=== PATIENT | female | born 1995 | race Caucasian/White ===

== ENCOUNTER 2018-02-17 04:07 | Emergency (ER) | payer MEDICAID, OTHER ==
[2018-02-17 04:15] VITALS: BP 141/77; BMI 18.8
--- NOTE | 2018-02-17 04:25 | DR.GENAD ---
HPI - PCP Primary Care Physician: nfd - HPI Comment HPI Comment: COUGHING AND IMBALANCE FOR 3 DAYS. GETTING WORSE. - Complaint/Symptoms Chief Complaint Doctors Comments: PATIENT, PASS OUT AT HOME AND HAVING SOB AND HEADACHE. SOME DIZZINESS WELL OUT OF HER DEPRESSION MEDICATION BUT DENIES HALLUCINATIONS, SUICIDAL OR HOMICIDAL IDEATION. NO FEVER OR DYSURIA. EPIGASTRIC PAIN AND REFLUXTODAY. Chief Complaint:: pt states" i been tingling all over for 2 days. i think i passed out yesterday i woke up laying on the couch" - Nurses notes reviewed Nurses Notes Review: Yes - Source History Provided: Patient - Mode of Arrival Mode of Arrival: EMS - Timing Onset of Chief Complaint: 02/16/18 Came on: Suddenly - Duration Duration: Constant Duration: Days - Severity Severity: Moderate PMH - PMH Past Medical History: Yes Past Medical History: Anxiety, Depression Past Surgical History: Yes Surgical History: - Family History History of Family Medical Conditions: Yes Family Medical History: Diabetes Mellitus - Social History Type of Tobacco Use: Cigarettes Does any household member use tobacco: Yes Alcohol Use: None Do you use any recreational Drugs:: No Lives With: Family Lives Where: Home - infectious screening In the last 2 months have you had wt loss of >10#?: NO Have you had fever, night sweats or hemotysis?: No Have you traveled outside the country in the last 6 months?: No Isolation: Standard ROS - Review of Systems Constitutional: Weakness, Fatigue Eyes: No Symptoms Reported. negative: Eye Pain, Blurred Vision, Discharge, Photophobia, Diplopia ENTM: Nose Congestion. negative: Ear Pain, Nose Discharge, Throat Pain Respiratoy: Productive Cough, Short of Breath. negative: Wheezing, Hemoptysis Cardiovascular: No Symptoms Reported Gastrointestinal/Abdominal: Nausea Genitourinary: No Symptoms Reported. negative: Dysuria, Frequency, Hematuria Neurological: No Symptoms Reported, Headache, Weakness, Dizziness Musculoskeletal: Muscle Pain Integumentary: No Symptoms Reported Hematologic/Lymphatic: No Symptoms Reported Endocrine: No Symptoms Reported All Other Systems: Reviewed and Negative PE - Vital Signs Vitals: Temperature 98 F Pulse Rate 86 Respiratory Rate 18 Blood Pressure [Left Arm] 111/53 Blood Pressure [Right Arm] 125/60 Blood Pressure 141/77 O2 Sat by Pulse Oximetry 100 - General Limitations: No Limitations General Appearance: Alert - Head Head Exam: Normal Inspection - Eyes Eye exam: Normal Appearance - ENT ENT Exam: Normal External Ear Exam External Ear Exam: Normal External Inspection TM/Canal Exam: Bilateral Normal Nose Exam: Normal Nose Exam Mouth Exam: Normal Inspection Throat Exam: Normal Inspection - Neck Neck Exam: Trachea Midline - Chest Chest Inspection: Symmetric Chest Wall Rise - Respiratory Respiratory Exam: Normal Lung Sounds Bilat Respiratory Exam: Bilateral Clear to Auscultation - Cardiovascular Cardiovascular Exam: Regular Rate, Normal Rhythm, Normal Heart Sounds - Abdominal Exam Abdominal Exam: Normal Bowel Sounds, Soft. negative: Tenderness - Extremities Extremities Exam: Normal Inspection - Back Back Exam: Normal Inspection - Neurologic Neurological Exam: Alert, Oriented X3 - Psychiatric Psychiatric Exam: Normal Affect, Normal Mood - Skin Skin Exam: Normal Color MDM - Differential Diagnosis Differential Diagnosis: GENERALIZE WEAKNESS, DIZZINESS, ATAXIA, DEHYDRATION, PNEUMONIA,SYNCOPAL EPI Course - Treatment Treatment: SEE ORDERS. - Education/Counseling Education/Counseling: Patient, Education Educated On: Diagnosis, Needs for Follow Up ROR - Labs Reviewed Laboratory Results Reviewed?: Yes Result Diagrams: 02/17/18 05:18 02/17/18 05:18 Laboratory: WBC 14.4 X10^3/uL (3.6-10.0) H 02/17/18 05:18 RBC 4.50 X10^6/uL (3.5-5.4) 02/17/18 05:18 Hgb 13.5 g/dL (12.0-16.0) 02/17/18 05:18 Hct 39.2 % (36.0-47.0) 02/17/18 05:18 MCV 86.9 fL (80.0-100.0) 02/17/18 05:18 MCH 29.9 pg (27.0-34.0) 02/17/18 05:18 MCHC 34.4 g/dL (33.0-35.0) 02/17/18 05:18 RDW 13.5 % (11.6-16.5) 02/17/18 05:18 Plt Count 300 X10^3/uL (150.0-450.0) 02/17/18 05:18 MPV 7.8 fL (7.4-11.0) 02/17/18 05:18 Neut % (Auto) 70.1 % (42.0-75.0) 02/17/18 05:18 Lymph % (Auto) 20.5 % (21.0-51.0) L 02/17/18 05:18 [place] % (Auto) 5.9 % (0.0-13.0) 02/17/18 05:18 Eos % (Auto) 3.0 % (0.9-2.9) H 02/17/18 05:18 Baso % (Auto) 0.5 % (0.2-1.0) 02/17/18 05:18 Neut # (Auto) 10.1 x10^3/uL (2.2-4.8) H 02/17/18 05:18 Lymph # (Auto) 3.0 X10^3/uL (1.3-2.9) H 02/17/18 05:18 [place] # (Auto) 0.8 x10^3/uL (0.3-0.8) 02/17/18 05:18 Eos # (Auto) 0.4 x10^3/uL (0.0-0.2) H 02/17/18 05:18 Baso # (Auto) 0.1 X10^3/uL (0.0-0.1) 02/17/18 05:18 Absolute Nucleated RBC 0.0 /100WBC 02/17/18 05:18 Sodium 137 mmol/L (136-145) 02/17/18 05:18 Corrected Sodium TNP 02/17/18 05:18 Potassium 3.7 mmol/L (3.5-5.1) 02/17/18 05:18 Chloride 99 mmol/L (98-107) 02/17/18 05:18 Carbon Dioxide 25.8 mmol/L (21-32) 02/17/18 05:18 BUN 7 mg/dL (7-18) 02/17/18 05:18 Creatinine 0.76 mg/dL (0.55-1.02) 02/17/18 05:18 Est GFR (MDRD) Af Amer > 60 (>60) 02/17/18 05:18 Est GFR (MDRD) Non-Af > 60 (>60) 02/17/18 05:18 Glucose 101 mg/dL (65-99) H 02/17/18 05:18 Calcium 9.2 mg/dL (8.5-10.1) 02/17/18 05:18 Corrected Calcium TNP 02/17/18 05:18 Total Bilirubin 0.60 mg/dL (0.2-1.0) 02/17/18 05:18 AST 9 Units/L (15-37) L 02/17/18 05:18 ALT 19 Units/L (12-78) 02/17/18 05:18 Alkaline Phosphatase 106 Units/L (46-116) 02/17/18 05:18 Total Protein 8.3 g/dL (6.4-8.2) H 02/17/18 05:18 Albumin 4.4 g/dL (3.4-5.0) 02/17/18 05:18 Globulin 3.9 g/dL (2.5-4.5) 02/17/18 05:18 Albumin/Globulin Ratio 1.1 Ratio (1.1-2.1) 02/17/18 05:18 Specimen Type Clean catch urine 02/17/18 06:47 Urine Color Straw (YELLOW) 02/17/18 06:47 Urine Appearance Clear (CLEAR) 02/17/18 06:47 Urine pH 7.0 (5.0 - 8.0) 02/17/18 06:47 Ur Specific [place] 1.005 (1.000-1.030) 02/17/18 06:47 Urine Protein Negative (NEGATIVE) 02/17/18 06:47 Urine Glucose (UA) Negative (NEGATIVE) 02/17/18 06:47 Urine Ketones Negative (NEGATIVE) 02/17/18 06:47 Urine Occult Blood Negative (NEGATIVE) 02/17/18 06:47 Urine Nitrite Negative (NEGATIVE) 02/17/18 06:47 Urine Bilirubin Negative (NEGATIVE) 02/17/18 06:47 Urine Urobilinogen Normal (NORMAL) 02/17/18 06:47 Ur Leukocyte Esterase Negative (NEGATIVE) 02/17/18 06:47 Urine Opiates Screen Negative (NEG=<300) 02/17/18 06:47 Urine Methadone Screen Negative (NEG=<300) 02/17/18 06:47 Ur Barbiturates Screen Negative (NEG=<200) 02/17/18 06:47 Ur Phencyclidine Scrn Negative (NEG=<25) 02/17/18 06:47 Ur Amphetamines Screen Negative (NEG=<1000) 02/17/18 06:47 U Benzodiazepines Scrn Negative (NEG=<200) 02/17/18 06:47 Urine Cocaine Screen Negative (NEG=<300) 02/17/18 06:47 U Marijuana (THC) Screen Negative (NEG=<50) 02/17/18 06:47 - XRAY XRAY Interpreted by: Radiologist XRAY Findings: REPORT DISCUSS WITH PATIENT. - Diagnosis Discharge Problem: Generalized weakness, Dehydration, Dyspepsia Syncope Qualifiers: Syncope type: unspecified Qualified Code(s): R55 - Syncope and collapse - Discharge Plan Disposition: 01 HOME, SELF-CARE Condition: Stable Prescriptions: Hydroxyzine Pamoate [Vistaril] 50 mg PO TID PRN #20 cap PRN Reason: Ranitidine HCl [ZANTAC TAB 150 MG *] 150 mg PO BID #60 tab - Follow ups/Referrals Follow ups/Referrals: NFD,None [Primary Care Provider] - 2 days - Instructions Instructions: Weakness, [id number], Dehydration, Adult, [id number], Syncope , [id number] Additional Instructions: RETURN TO ED IF WORSE. FOLLOW UP WITH [facility] TODAY FOR MENTAL HEALTH FOLLOW UP..
[2018-02-17] MEDS ORDERED: NS 1000 ML 1,000 ML IV ONE (04:48)
[2018-02-17] MEDS ORDERED: PEPCID 20 MG IV PREMIX* 20 MG/50 ML BAG IV ONE ×2 (04:49→05:04)
[2018-02-17] MEDS ORDERED: TORADOL 30 MG VIAL IVP ONE (04:49)
[2018-02-17] MEDS ORDERED: NS 1000 ML 1,000 ML ONE (05:04)
[2018-02-17] MEDS ORDERED: TORADOL 30 MG VIAL ONE (05:04)
--- NOTE | 2018-02-17 05:38 | RAD ---
Chest AP portable Indication: Near syncope Findings: There is no pneumothorax or effusion. There is no consolidation. Heart size is normal. Impression: No acute chest process. Reported By:
[2018-02-17 05:41] LABS: ALANINE AMINOTRANSFERASE 19 Units/L (12-78); ALBUMIN 4.4 g/dL (3.4-5.0); ALKALINE PHOSPHATASE 106 Units/L (46-116); ASPARTATE AMINO TRANSFERASE 9 Units/L (15-37); BLOOD UREA NITROGEN 7 mg/dL (7-18); CALCIUM 9.2 mg/dL (8.5-10.1); CARBON DIOXIDE 25.8 mmol/L (21-32); CHLORIDE 99 mmol/L (98-107); CREATININE 0.76 mg/dL (0.55-1.02); SODIUM 137 mmol/L (136-145); TOTAL PROTEIN 8.3 g/dL (6.4-8.2); eGFR BLACK RACES > 60 (>60); eGFR NON BLACK RACES > 60 (>60)
--- NOTE | 2018-02-17 05:42 | CT ---
HISTORY: Near syncope Study: CT brain without contrast Comparison: 08/07/2017. Technique: Multiple axial images of the brain were obtained from the skull base to the vertex without administra tion of IV contrast. Coronal and sagittal images are also reviewed. Dose reduction techniques utilize d automatic exposure control. Findings: No acute intraparenchymal hemorrhage or mass can be identified. No extra-axial fluid collections are seen. No alteration in the attenuation of the brain parenchyma can be identified to suggest acute o r subacute ischemic change. The ventricular system is symmetric and nondilated. The extracranial st ructures are grossly unremarkable. IMPRESSION: 1. No acute intracranial process can be identified. Reported By:
[2018-02-17 05:44] LABS: BASOPHILS # (AUTO) 0.1 X10^3/uL (0.0-0.1); BASOPHILS % (AUTO) 0.5 % (0.2-1.0); EOSINOPHILS # (AUTO) 0.4 x10^3/uL (0.0-0.2); HEMATOCRIT 39.2 % (36.0-47.0); HEMOGLOBIN 13.5 g/dL (12.0-16.0); LYMPHOCYTES % (AUTO) 20.5 % (21.0-51.0); MEAN CORPUSCULAR HEMOGLOBIN 29.9 pg (27.0-34.0); MEAN CORPUSCULAR HGB CONC 34.4 g/dL (33.0-35.0); MEAN CORPUSCULAR VOLUME 86.9 fL (80.0-100.0); MEAN PLATELET VOLUME 7.8 fL (7.4-11.0); MONOCYTES # (AUTO) 0.8 x10^3/uL (0.3-0.8); MONOCYTES % (AUTO) 5.9 % (0.0-13.0); NEUTROPHILS # (AUTO) 10.1 x10^3/uL (2.2-4.8); NEUTROPHILS % (AUTO) 70.1 % (42.0-75.0); PLATELET COUNT 300 X10^3/uL (150.0-450.0); RED CELL DISTRIBUTION WIDTH 13.5 % (11.6-16.5); WHITE BLOOD COUNT 14.4 X10^3/uL (3.6-10.0)
[2018-02-17 07:18] LABS: BILIRUBIN,URINE NEGATIVE (NEGATIVE); BLOOD/HEMOGLOBIN,URINE NEGATIVE (NEGATIVE); GLUCOSE, URINE NEGATIVE (NEGATIVE); KETONES,URINE NEGATIVE (NEGATIVE); LEUKOCYTE ESTERASE ,URINE NEGATIVE (NEGATIVE); NITRITES,URINE NEGATIVE (NEGATIVE); PROTEIN,URINE NEGATIVE (NEGATIVE); UROBILINOGEN,URINE NORMAL (NORMAL)
[2018-02-17 07:22] LABS: APPEARANCE,URINE CLEAR (CLEAR); COLOR,URINE STRAW (YELLOW)
[2018-02-17] MEDS ORDERED: VISTARIL PO ONE ×2 (07:47→07:48)
== END 2018-02-17 07:56 | disposition home or self-care (01) ==
LOC: ER 04:07
DX: E86.0 Dehydration (principal); R55 Syncope and collapse; R53.1 Weakness; R10.13 Epigastric pain
CPT/HCPCS: 36415; 70450; 71045; 80053; 80307; 81003; 85025; 96365; 96374; 99282; 99283; A4222; Q0177; S0028; G0434; J1885

== ENCOUNTER 2018-02-19 01:24 | Emergency (ER) | payer MEDICAID, OTHER ==
[2018-02-19 01:38] VITALS: BMI 20.5
[2018-02-19 02:15] LABS: BASOPHILS # (AUTO) 0.1 X10^3/uL (0.0-0.1); BASOPHILS % (AUTO) 0.7 % (0.2-1.0); EOSINOPHILS # (AUTO) 0.6 x10^3/uL (0.0-0.2); EOSINOPHILS % (AUTO) 3.8 % (0.9-2.9); HEMATOCRIT 36.1 % (36.0-47.0); HEMOGLOBIN 12.6 g/dL (12.0-16.0); LYMPHOCYTES # (AUTO) 3.7 X10^3/uL (1.3-2.9); MEAN CORPUSCULAR HEMOGLOBIN 30.2 pg (27.0-34.0); MEAN CORPUSCULAR HGB CONC 34.9 g/dL (33.0-35.0); MEAN CORPUSCULAR VOLUME 86.4 fL (80.0-100.0); MEAN PLATELET VOLUME 7.6 fL (7.4-11.0); MONOCYTES % (AUTO) 5.9 % (0.0-13.0); NEUTROPHILS # (AUTO) 10.8 x10^3/uL (2.2-4.8); NEUTROPHILS % (AUTO) 66.6 % (42.0-75.0); PLATELET COUNT 294 X10^3/uL (150.0-450.0); RED BLOOD COUNT 4.17 X10^6/uL (3.5-5.4); RED CELL DISTRIBUTION WIDTH 13.1 % (11.6-16.5); WHITE BLOOD COUNT 16.3 X10^3/uL (3.6-10.0)
[2018-02-19 02:27] LABS: ALANINE AMINOTRANSFERASE 22 Units/L (12-78); ALBUMIN 3.9 g/dL (3.4-5.0); ALKALINE PHOSPHATASE 101 Units/L (46-116); ASPARTATE AMINO TRANSFERASE 13 Units/L (15-37); BLOOD UREA NITROGEN 6 mg/dL (7-18); CARBON DIOXIDE 29.2 mmol/L (21-32); CHLORIDE 103 mmol/L (98-107); CREATINE KINASE 206 Units/L (26-192); CREATININE 0.77 mg/dL (0.55-1.02); SODIUM 140 mmol/L (136-145); TOTAL PROTEIN 7.4 g/dL (6.4-8.2); eGFR BLACK RACES > 60 (>60); eGFR NON BLACK RACES > 60 (>60)
[2018-02-19 02:28] LABS: SERUM PREGNANCY TEST, QUAL NEGATIVE <10 mIU/mL
--- NOTE | 2018-02-19 02:28 | DR.GENAD ---
HPI - PCP Primary Care Physician: NFHilary - HPI Comment HPI Comment: HISTORY BELOW. - Complaint/Symptoms Chief Complaint Doctors Comments: PATIENT GIVEN VISTARIL 20 PILLS AND IS ALL GONE WITHIN 2 DAYS. NO ONE SAW HER TAKE MED. BUT BOTTLE IS EMTY AND RELATIVE DID NOT FIND PILL ANY WHERE IN THEIR HOME. PATIENT SAID SHE MAY HAVE TAKEN EXTRA MED SHE TRY TO SLEEP. SHE IS NOT SLEEPY OR SLEEPING IN ED.DENIES SUICIDAL AND HOMICIDAL IDEATION. HEAR SOUNDS OCCATIONALLY OTHERWISE NO HALLUCINATIONS. SHE IS CALM AND COORPERATIVE IN ED. Chief Complaint:: Patient states she got RX filled on 02/17 #20 of Hydroxyzine and now the bottle is emptied. Patient remembers going in and out of the bathroom and took one and then another at another time but cannot recall what she took. Patient parent states that she has been confused throughout the day. Mother reports she found the bottle on the floor emptied. Patient states to me she believes someone over dosed her. Mother reports shes supposed to take "mental" medications for depression and unsure of what else. reports she is bipolar, depressed and has hx of hearing voices before. Both and mother states no one else in the home had access to them. - Nurses notes reviewed Nurses Notes Review: Yes - Source History Provided: Patient, Parent - Mode of Arrival Mode of Arrival: Ambulatory - Timing Onset of Chief Complaint: 02/18/18 Came on: Suddenly - Duration Duration: Constant Duration: Days - Severity Severity: Moderate PMH - PMH Past Medical History: Yes Past Medical History: Depression, Schizophrenia Past Medical History Comment: Bipolar Past Surgical History: No Surgical History: - Family History History of Family Medical Conditions: No Family Medical History: Diabetes Mellitus - Social History Does patient currently use any type of tobacco product: Yes Have you used tobacco products in the last 12 months: Yes Type of Tobacco Use: Cigarettes Does any household member use tobacco: Yes Alcohol Use: None Do you use any recreational Drugs:: No Lives With: Mom, Spouse Lives Where: Home - infectious screening In the last 2 months have you had wt loss of >10#?: NO Have you had fever, night sweats or hemotysis?: No Have you traveled outside the country in the last 6 months?: No Isolation: Standard ROS - Review of Systems Constitutional: No Symptoms Reported Eyes: No Symptoms Reported ENTM: No Symptoms Reported Respiratoy: No Symptoms Reported Cardiovascular: No Symptoms Reported Gastrointestinal/Abdominal: No Symptoms Reported Genitourinary: No Symptoms Reported Neurological: Depressed Musculoskeletal: No Symptoms Reported Integumentary: No Symptoms Reported Hematologic/Lymphatic: No Symptoms Reported Endocrine: No Symptoms Reported All Other Systems: Reviewed and Negative PE - Vital Signs Vitals: Temperature 98.1 F Pulse Rate [Left] 79 Pulse Rate 80 Respiratory Rate 22 Blood Pressure [Left Arm] 102/59 Blood Pressure [Right Arm] 125/60 Blood Pressure 130/71 O2 Sat by Pulse Oximetry 99 - General Limitations: No Limitations, Other General Appearance: Alert - Head Head Exam: Normal Inspection - Eyes Eye exam: Normal Appearance - ENT ENT Exam: Normal External Ear Exam External Ear Exam: Normal External Inspection TM/Canal Exam: Bilateral Normal Nose Exam: Normal Nose Exam Mouth Exam: Normal Inspection Throat Exam: Normal Inspection - Neck Neck Exam: Normal Inspection - Chest Chest Inspection: Symmetric Chest Wall Rise - Respiratory Respiratory Exam: Normal Lung Sounds Bilat Respiratory Exam: Bilateral Clear to Auscultation - Cardiovascular Cardiovascular Exam: Regular Rate, Normal Rhythm, Normal Heart Sounds - Abdominal Exam Abdominal Exam: Normal Bowel Sounds, Soft. negative: Tenderness - Extremities Extremities Exam: Normal Inspection - Back Back Exam: Normal Inspection - Neurologic Neurological Exam: Alert, Oriented X3, CN II-XII Intact. negative: Motor Sensory Deficit - Psychiatric Psychiatric Exam: Depressed - Skin Skin Exam: Normal Color MDM - Additional Information Additional Information Obtained From: Family - Differential Diagnosis Differential Diagnosis: DEPRESSION, DRUG OVER DOSE. Course - Treatment Treatment: SEE ORDERS. - Education/Counseling Education/Counseling: Patient, Family, Education Educated On: Diagnosis, Needs for Follow Up ROR - Labs Reviewed Laboratory Results Reviewed?: Yes Result Diagrams: 02/19/18 02:04 02/19/18 02:04 Laboratory: WBC 16.3 X10^3/uL (3.6-10.0) H 02/19/18 02:04 RBC 4.17 X10^6/uL (3.5-5.4) 02/19/18 02:04 Hgb 12.6 g/dL (12.0-16.0) 02/19/18 02:04 Hct 36.1 % (36.0-47.0) 02/19/18 02:04 MCV 86.4 fL (80.0-100.0) 02/19/18 02:04 MCH 30.2 pg (27.0-34.0) 02/19/18 02:04 MCHC 34.9 g/dL (33.0-35.0) 02/19/18 02:04 RDW 13.1 % (11.6-16.5) 02/19/18 02:04 Plt Count 294 X10^3/uL (150.0-450.0) 02/19/18 02:04 MPV 7.6 fL (7.4-11.0) 02/19/18 02:04 Neut % (Auto) 66.6 % (42.0-75.0) 02/19/18 02:04 Lymph % (Auto) 23.0 % (21.0-51.0) 02/19/18 02:04 [place] % (Auto) 5.9 % (0.0-13.0) 02/19/18 02:04 Eos % (Auto) 3.8 % (0.9-2.9) H 02/19/18 02:04 Baso % (Auto) 0.7 % (0.2-1.0) 02/19/18 02:04 Neut # (Auto) 10.8 x10^3/uL (2.2-4.8) H 02/19/18 02:04 Lymph # (Auto) 3.7 X10^3/uL (1.3-2.9) H 02/19/18 02:04 [place] # (Auto) 1.0 x10^3/uL (0.3-0.8) H 02/19/18 02:04 Eos # (Auto) 0.6 x10^3/uL (0.0-0.2) H 02/19/18 02:04 Baso # (Auto) 0.1 X10^3/uL (0.0-0.1) 02/19/18 02:04 Absolute Nucleated RBC 0.0 /100WBC 02/19/18 02:04 Sodium 140 mmol/L (136-145) 02/19/18 02:04 Corrected Sodium TNP 02/19/18 02:04 Potassium 3.6 mmol/L (3.5-5.1) 02/19/18 02:04 Chloride 103 mmol/L (98-107) 02/19/18 02:04 Carbon Dioxide 29.2 mmol/L (21-32) 02/19/18 02:04 BUN 6 mg/dL (7-18) L 02/19/18 02:04 Creatinine 0.77 mg/dL (0.55-1.02) 02/19/18 02:04 Est GFR (MDRD) Af Amer > 60 (>60) 02/19/18 02:04 Est GFR (MDRD) Non-Af > 60 (>60) 02/19/18 02:04 Glucose 96 mg/dL (65-99) 02/19/18 02:04 Calcium 9.0 mg/dL (8.5-10.1) 02/19/18 02:04 Corrected Calcium TNP 02/19/18 02:04 Total Bilirubin 0.20 mg/dL (0.2-1.0) 02/19/18 02:04 AST 13 Units/L (15-37) L 02/19/18 02:04 ALT 22 Units/L (12-78) 02/19/18 02:04 Alkaline Phosphatase 101 Units/L (46-116) 02/19/18 02:04 Creatine Kinase 206 Units/L (26-192) H 02/19/18 02:04 Total Protein 7.4 g/dL (6.4-8.2) 02/19/18 02:04 Albumin 3.9 g/dL (3.4-5.0) 02/19/18 02:04 Globulin 3.5 g/dL (2.5-4.5) 02/19/18 02:04 Albumin/Globulin Ratio 1.1 Ratio (1.1-2.1) 02/19/18 02:04 HCG, Qual Negative <10 mIU/mL 02/19/18 02:04 Specimen Type Clean catch urine 02/19/18: Urine Color Pale yellow (YELLOW) 02/19/18: Urine Appearance Clear (CLEAR) 02/19/18: Urine pH 6.5 (5.0 - 8.0) 02/19/18: Ur Specific [place] 1.005 (1.000-1.030) 02/19/18 02: Urine Protein Negative (NEGATIVE) 02/19/18: Urine Glucose (UA) Negative (NEGATIVE) 05/11/18 02:27 Urine Ketones Negative (NEGATIVE) 02/19/18 02:27 Urine Occult Blood Negative (NEGATIVE) 02/19/18 02:27 Urine Nitrite Negative (NEGATIVE) 02/19/18 02:27 Urine Bilirubin Negative (NEGATIVE) 02/19/18 02:27 Urine Urobilinogen Normal (NORMAL) 02/19/18 02:27 Ur Leukocyte Esterase Negative (NEGATIVE) 02/19/18 02:27 Salicylates 9.3 mg/dL (2.8-20) 02/19/18 02:04 Urine Opiates Screen Negative (NEG=<300) 02/19/18 02:27 Urine Methadone Screen Negative (NEG=<300) 02/19/18 02:27 Acetaminophen 0.0 ug/mL (10-30) L 02/19/18 02:04 Ur Barbiturates Screen Negative (NEG=<200) 02/19/18 02:27 Ur Phencyclidine Scrn Negative (NEG=<25) 02/19/18 02:27 Ur Amphetamines Screen Negative (NEG=<1000) 02/19/18 02:27 U Benzodiazepines Scrn Negative (NEG=<200) 02/19/18 02:27 Urine Cocaine Screen Negative (NEG=<300) 02/19/18 02:27 U Marijuana (THC) Screen Negative (NEG=<50) 02/19/18 02:27 Ethyl Alcohol mg/dL < 3 mg/dL (0-19.9) 02/19/18 02:04 - EKG Rhythm: NSR (EKG NOTED) - Diagnosis Discharge Problem: Depression Qualifiers: Depression Type: unspecified Qualified Code(s): F32.9 - Major depressive disorder, single episode, unspecified Drug overdose Qualifiers: Encounter type: initial encounter Injury intent: accidental or unintentional Qualified Code(s): T50.901A - Poisoning by unspecified drugs, medicaments and biological substances, accidental (unintentional), initial encounter - Discharge Plan Disposition: 01 HOME, SELF-CARE Condition: Stable - Follow ups/Referrals Follow ups/Referrals: NFD,None [Primary Care Provider] - 3 days - Instructions Instructions: Schizophrenia Additional Instructions: RETURN TO ED IF WORSE. REFER FOR FOLLOW UP FOR MENTAL HEALTH PER [facility]AL [facility]. See Outpatient treatment plan per SILKE Saldaña (Mobile [employer])
[2018-02-19 02:29] LABS: SALICYLATE 9.3 mg/dL (2.8-20)
[2018-02-19 02:31] LABS: BLOOD ALCOHOL < 3 mg/dL (0-19.9)
[2018-02-19 02:39] LABS: BILIRUBIN,URINE NEGATIVE (NEGATIVE); BLOOD/HEMOGLOBIN,URINE NEGATIVE (NEGATIVE); GLUCOSE, URINE NEGATIVE (NEGATIVE); KETONES,URINE NEGATIVE (NEGATIVE); LEUKOCYTE ESTERASE ,URINE NEGATIVE (NEGATIVE); NITRITES,URINE NEGATIVE (NEGATIVE); PH,URINE 6.5 (5.0 - 8.0); PROTEIN,URINE NEGATIVE (NEGATIVE); UROBILINOGEN,URINE NORMAL (NORMAL)
[2018-02-19 02:48] LABS: APPEARANCE,URINE CLEAR (CLEAR); COLOR,URINE PALE YELLOW (YELLOW)
[2018-02-19] MEDS ORDERED: NS 1000 ML 1,000 ML IV ONE (03:15)
[2018-02-19] MEDS ORDERED: NS 1000 ML 1,000 ML ONE (03:16)
[2018-02-19 08:31] VITALS: BP 102/59
== END 2018-02-19 09:02 | disposition home or self-care (01) ==
LOC: ER 01:24
DX: F32.9 Major depressive disorder, single episode, unspecified (principal); T50.901A Poisoning by unspecified drugs, medicaments and biological substances, accidental (unintentional), initial encounter
CPT/HCPCS: 36415; 80053; 80307; 81003; 82550; 84703; 85025; 93005; 93010; 96365; 99284; 99285; A4222; G0434; G6038; G6039; G6040

== ENCOUNTER → 2018-03-04 | Outpatient (CLI) | payer OTHER ==
[2018-02-19 08:31] VITALS: BP 102/59
[2018-03-04 12:38] LABS: BASOPHILS # (AUTO) 0.1 X10^3/uL (0.0-0.1); BASOPHILS % (AUTO) 1.2 % (0.2-1.0); EOSINOPHILS # (AUTO) 0.4 x10^3/uL (0.0-0.2); EOSINOPHILS % (AUTO) 4.3 % (0.9-2.9); HEMATOCRIT 39.1 % (36.0-47.0); HEMOGLOBIN 13.4 g/dL (12.0-16.0); LYMPHOCYTES # (AUTO) 3.2 X10^3/uL (1.3-2.9); LYMPHOCYTES % (AUTO) 31.7 % (21.0-51.0); MEAN CORPUSCULAR HEMOGLOBIN 29.5 pg (27.0-34.0); MEAN CORPUSCULAR HGB CONC 34.3 g/dL (33.0-35.0); MEAN PLATELET VOLUME 7.7 fL (7.4-11.0); MONOCYTES # (AUTO) 0.5 x10^3/uL (0.3-0.8); MONOCYTES % (AUTO) 4.9 % (0.0-13.0); NEUTROPHILS # (AUTO) 5.9 x10^3/uL (2.2-4.8); NEUTROPHILS % (AUTO) 57.9 % (42.0-75.0); PLATELET COUNT 304 X10^3/uL (150.0-450.0); RED BLOOD COUNT 4.54 X10^6/uL (3.5-5.4); RED CELL DISTRIBUTION WIDTH 12.7 % (11.6-16.5); WHITE BLOOD COUNT 10.2 X10^3/uL (3.6-10.0)
[2018-03-04 12:51] LABS: ALANINE AMINOTRANSFERASE 18 Units/L (12-78); ALBUMIN 3.8 g/dL (3.4-5.0); ALKALINE PHOSPHATASE 97 Units/L (46-116); ASPARTATE AMINO TRANSFERASE 7 Units/L (15-37); BLOOD UREA NITROGEN 10 mg/dL (7-18); CALCIUM 8.2 mg/dL (8.5-10.1); CARBON DIOXIDE 27.8 mmol/L (21-32); CHLORIDE 105 mmol/L (98-107); CHOLESTEROL 181 mg/dL (0-200); CREATININE 0.83 mg/dL (0.55-1.02); HDL CHOLESTEROL 36 mg/dL (40-60); SODIUM 139 mmol/L (136-145); TOTAL PROTEIN 7.2 g/dL (6.4-8.2); TRIGLYCERIDES 62 mg/dL (0-150); TSH (3RD GENERATION) 1.622 uIU/mL (0.358-3.74); eGFR BLACK RACES > 60 (>60); eGFR NON BLACK RACES > 60 (>60)
== END ==
LOC: LAB 12:11
DX: Z00.00 Encounter for general adult medical examination without abnormal findings (principal); F32.3 Major depressive disorder, single episode, severe with psychotic features; R53.83 Other fatigue; R79.89 Other specified abnormal findings of blood chemistry
CPT/HCPCS: 36415; 80053; 80061; 84443; 85025

== ENCOUNTER 2023-09-01 06:49 | Inpatient (IN) ==
[2023-09-01] MEDS ORDERED: ANCEF VIAL 1 GRAM IVP ONE (06:52)
[2023-09-01] MEDS ORDERED: NS 100 ML IV 100 ML ONE (06:53)
[2023-09-01] MEDS ORDERED: LR 1,000 ML IV 1,000 ML IV ONE ×2 (06:54→07:01)
[2023-09-01] MEDS ORDERED: DILAUDID INJ ONE (06:55)
[2023-09-01] MEDS ORDERED: REGLAN INJ 10 MG VIAL ONE (06:55)
[2023-09-01] MEDS ORDERED: ZOFRAN INJ 4 MG VIAL ONE (06:55)
[2023-09-01] MEDS ORDERED: PEPCID 20 MG VIAL ONE (06:55)
[2023-09-01] MEDS ORDERED: MARCAINE SPINAL ONE (06:55)
[2023-09-01] MEDS ORDERED: DIPRIVAN VIAL 20 ML ONE (06:55)
[2023-09-01] MEDS ORDERED: D5 1/2 NS 1,000 mL + PITOCIN 20 UNITS/L IV 20 UNITS/1,000 ML BAG IV ONE (07:01)
[2023-09-01] MEDS ORDERED: EPHEDRINE SULFATE INJ ONE (07:18)
[2023-09-01] MEDS ORDERED: XYLOCAINE 2 % (PLAIN) ONE (07:31)
[2023-09-01] MEDS ORDERED: VERSED ONE (07:49)
[2023-09-01] MEDS ORDERED: PITOCIN ONE (07:52)
[2023-09-01] MEDS ORDERED: ILOTYCIN OPHTH OINT EACHEYE ONE (08:51)
[2023-09-01] MEDS ORDERED: BUTT CREAM (COMPOUND) TOP PRN (08:51)
[2023-09-01] MEDS ORDERED: AQUA-MEPHYTON NEONATAL IM ONE (08:51)
[2023-09-01] MEDS ORDERED: ENGERIX-B PEDIATRIC 1 DOSE IM ONE (08:51)
[2023-09-01] MEDS ORDERED: GLUTOSE 15 GEL ORAL PO PRN (08:51)
[2023-09-01] MEDS ORDERED: REGLAN INJ 10 MG VIAL IVP PRN ×2 (09:11→10:45)
[2023-09-01] MEDS ORDERED: BARHEMSYS INJ IVP PRN (09:11)
[2023-09-01] MEDS ORDERED: BENADRYL INJ 50 MG VIAL IVP PRN ×2 (09:11→10:45)
[2023-09-01] MEDS ORDERED: ZOFRAN INJ 4 MG VIAL IVP PRN ×3 (09:11→10:45)
[2023-09-01] MEDS ORDERED: TORADOL 30 MG VIAL IVP PRN ×2 (09:12→10:45)
[2023-09-01] MEDS ORDERED: PERCOCET TAB 5/325 MG PO PRN ×2 (09:12→10:45)
[2023-09-01] MEDS ORDERED: NARCAN INJ IVP PRN ×3 (09:12→10:45)
[2023-09-01] MEDS ORDERED: ADACEL or BOOSTRIX TDaP VACCINE IM ONE ×2 (09:28→21:14)
[2023-09-01] MEDS ORDERED: HYPERRHO S/D (or RHOGAM) IM PRN (09:28)
[2023-09-01] MEDS ORDERED: MYLICON TAB 80 MG CHEW PO PRN (09:28)
[2023-09-01] MEDS ORDERED: D5 1/2 NS 1,000 ML 1,000 ML with PITOCIN 20 UNITS IV SCH ×2 (10:00)
[2023-09-01] MEDS: D5 1/2 NS 1,000 ML 1,000 ML IV SCH (19:00)
[2023-09-01 21:21] VITALS: RESP 20
[2023-09-02] MEDS: D5 1/2 NS 1,000 ML 1,000 ML IV SCH (00:44)
[2023-09-02 04:56] VITALS: BP 117/65; PULSE 76; TEMP 98.1; O2SAT 99
[2023-09-02 05:40] LABS: HEMATOCRIT 30.2 % (36.0-47.0); HEMOGLOBIN 10.1 g/dL (12.0-16.0)
[2023-09-02] MEDS ORDERED: PERCOCET TAB 5/325 MG PO PRN (07:15)
[2023-09-02] MEDS ORDERED: MOTRIN TAB 800 MG PO PRN (07:15)
[2023-09-02] MEDS ORDERED: PRENATAL PLUS PO SCH (09:00)
[2023-09-02] MEDS ORDERED: BACTROBAN TOPICAL OINT TOP SCH (14:00)
[2023-09-02] MEDS ORDERED: COLACE CAP 100 MG PO SCH (21:00)
== END 2023-09-02 12:00 | disposition home or self-care (01) | DRG 784 ==
LOC: LD 06:49 → MED/SURG 09:33
PROVIDERS: ADMIT Specialist; ATTEND Specialist
DX: O23.33 Infections of other parts of urinary tract in pregnancy, third trimester; Z30.2 Encounter for sterilization; N85.8 Other specified noninflammatory disorders of uterus; B96.29 Other Escherichia coli [E. coli] as the cause of diseases classified elsewhere; Z3A.38 38 weeks gestation of pregnancy; O99.613 Diseases of the digestive system complicating pregnancy, third trimester; O34.211 Maternal care for low transverse scar from previous cesarean delivery; O41.03X0 Oligohydramnios, third trimester, not applicable or unspecified; Z37.0 Single live birth; O99.113 Other diseases of the blood and blood-forming organs and certain disorders involving the immune mechanism complicating pregnancy, third trimester